=== PATIENT | female | born 1955 | race Caucasian/White ===

== ENCOUNTER 2017-01-23 14:40 | Outpatient (CLI) | payer OTHER | END 2017-01-23 14:41 | disposition home or self-care (01) | DX: M79.7 Fibromyalgia (principal); E11.9 Type 2 diabetes mellitus without complications ==

== ENCOUNTER 2017-04-19 14:07 | Outpatient (CLI) | payer OTHER ==
[2017-04-19 18:47] LABS: CHOL/HDL RATIO 3.4 (<4.4); CHOLESTEROL 139 mg/dL; HDL CHOLESTEROL 41 mg/dL; LDL/HDL RATIO 1.3 (<4.4); TRIGLYCERIDES 224 mg/dL; VLDL CHOLESTEROL 45 mg/dL
== END 2017-04-19 14:08 | disposition home or self-care (01) ==
LOC: LAB.F 14:07
PROVIDERS: ATTEND Internal Medicine
DX: E78.00 Pure hypercholesterolemia, unspecified (principal)
CPT/HCPCS: 36415; 80061

== ENCOUNTER 2017-06-19 14:08 | Outpatient (CLI) | payer OTHER ==
[2017-06-19 20:14] LABS: CALCIUM 9.6 mg/dL (8.5-10.3); CREATININE 0.9 mg/dL (0.4-1.0); POTASSIUM 4.1 mmol/L (3.5-5.0)
[2017-06-19 21:15] LABS: HEMOGLOBIN A1C 0.57 g/dL
== END 2017-06-19 14:09 | disposition home or self-care (01) ==
LOC: LAB.F 14:08
PROVIDERS: ATTEND Internal Medicine
DX: E11.9 Type 2 diabetes mellitus without complications (principal)
CPT/HCPCS: 36415; 80048; 83036

== ENCOUNTER 2018-04-02 08:41 | Outpatient (CLI) | payer OTHER ==
[2018-04-02 11:19] LABS: HB2 TOTAL 16.1 g/dL; HEMOGLOBIN A1C 0.65 g/dL; HEMOGLOBIN A1C % 5.8 % (4.6-6.2)
[2018-04-02 11:22] LABS: ALBUMIN 4.3 g/dL (3.2-5.5); ALBUMIN/GLOBULIN RATIO 1.3 (1.0-2.2); ALKALINE PHOSPHATASE 64 IU/L (42-121); ALT ALANINE AMINOTRANSFERASE 35 IU/L (10-60); AST ASPARTATE AMINOTRANSFERASE 31 IU/L (10-42); BUN - BLOOD UREA NITROGEN 21 mg/dL (6-20); CALCIUM 9.3 mg/dL (8.5-10.3); CARBON DIOXIDE - CO2 21 mmol/L (21-32); CHLORIDE 108 mmol/L (101-111); CHOL/HDL RATIO 3.6 (<4.4); CHOLESTEROL 118 mg/dL; CREATININE 0.9 mg/dL (0.4-1.0); GFR - MDRD 63 (>89); GLUCOSE 151 mg/dL (70-100); HDL CHOLESTEROL 33 mg/dL; LDL CHOLESTEROL,CALCULATED 55 mg/dL; LDL/HDL RATIO 1.7 (<4.4); SODIUM 140 mmol/L (135-145); TOTAL PROTEIN 7.5 g/dL (6.7-8.2); VLDL CHOLESTEROL 30 mg/dL
== END 2018-04-02 08:42 | disposition home or self-care (01) ==
LOC: LAB.F 08:41
PROVIDERS: ATTEND Internal Medicine
DX: E11.9 Type 2 diabetes mellitus without complications (principal)
CPT/HCPCS: 36415; 80053; 80061; 82043; 83036; 83721; 84443

== ENCOUNTER 2018-08-30 05:41 | Day surgery (SDC) | payer MEDICARE, OTHER ==
[2018-08-30] MEDS ORDERED: PROPARACAINE 0.5% OPHTH DROPS 15 ML ONE (06:28)
[2018-08-30] MEDS ORDERED: KETOROLAC 0.45% OPHTH DROPS ONE (06:28)
[2018-08-30] MEDS ORDERED: PHENYLEPHRINE 2.5% OPHTH 2 ML DROPS ONE (06:28)
[2018-08-30] MEDS ORDERED: CYCLOPENTOLATE 1% OPHTH DROPS 2 ML ONE (06:28)
[2018-08-30] MEDS ORDERED: PHENYLEPHRINE 2.5% OPHTH 2 ML DROPS RIGHTEYE ONE (06:44)
[2018-08-30] MEDS ORDERED: PROPARACAINE 0.5% OPHTH DROPS 15 ML RIGHTEYE ONE ×2 (06:44→07:45)
[2018-08-30] MEDS ORDERED: CYCLOPENTOLATE 1% OPHTH DROPS 2 ML RIGHTEYE ONE (06:44)
[2018-08-30] MEDS ORDERED: KETOROLAC 0.45% OPHTH DROPS RIGHTEYE ONE (06:44)
[2018-08-30] MEDS ORDERED: LACTATED RINGERS 500 ML IV ONE ×2 (06:58→08:11)
[2018-08-30] MEDS ORDERED: MIDAZOLAM 2 MG/2 ML VIAL IVP ONE (07:00)
[2018-08-30] MEDS ORDERED: TRIAMCIN/MOXIFLOX OPHTHALMIC 0.6 ML VIAL IO ONE (07:07)
[2018-08-30] MEDS ORDERED: TIMOLOL 0.5% OPHTH DROPS ONE (07:07)
[2018-08-30] MEDS ORDERED: BRIMONIDINE 0.2% OPHTH DROPS 5 ML ONE (07:07)
[2018-08-30] MEDS ORDERED: EPINEPHrine 1 MG/ML AMP ONE (07:07)
[2018-08-30] MEDS ORDERED: VANCOMYCIN OPHTHALMI 8MG/0.8ML 8 MG/0.8 ML SYRINGE IO ONE (07:08)
[2018-08-30] MEDS ORDERED: BSS/LIDOCAINE/EPINEPHRINE 1 ML SYRINGE ONE (07:08)
--- NOTE | 2018-08-30 07:14 | ANESTHESIA ---
Pre-Anesthesia VS, & Labs - Diagnosis R senile combined cataract - Procedure R cataract extraction with IOL Vital Signs: Temp Pulse Resp BP Pulse Ox 36.4 C L 82 18 161/84 H 98 08/30/18 06:33 08/30/18 06:33 08/30/18 06:33 08/30/18 06:33 08/30/18 06:33 Height 5 ft Weight (kg) 116.8 kg - NPO >8 hours - Is Patient ?: No - Lab Results Current Lab Results: Laboratory Tests 08/30/18 06:53: POC Whole Bld Glucose 159 H Lab results reviewed: No Home Medications and Allergies Home Medications: Ambulatory Orders Acetaminophen [Tylenol] 650 mg PO TID 08/30/18 Aspirin 325 mg PO DAILY 08/30/18 Atorvastatin Calcium 40 mg PO DAILY 08/30/18 Duloxetine HCl [Cymbalta] 60 mg PO DAILY 08/30/18 Lisinopril [Zestril] 5 mg PO ONCE 08/30/18 Metformin HCl 1,000 mg PO BID 08/30/18 Topiramate 100 mg PO DAILY 08/30/18 Acetaminophen [Tylenol] 650 mg PO TID 08/30/18 Aspirin 325 mg PO DAILY 08/30/18 Atorvastatin Calcium 40 mg PO DAILY 08/30/18 Duloxetine HCl [Cymbalta] 60 mg PO DAILY 08/30/18 Lisinopril [Zestril] 5 mg PO ONCE 08/30/18 Metformin HCl 1,000 mg PO BID 08/30/18 Topiramate 100 mg PO DAILY 08/30/18 Allergies/Adverse Reactions: Allergies Allergy/AdvReac Type Severity Reaction Status Date / Time gabapentin AdvReac Unknown Verified 08/30/18 06:34 tramadol AdvReac Respiratory Verified 08/30/18 06:34 Anes History & Medical History - Anesthetic History Anesthesia Complications: reports: No previous complications Family history of Anesthesia Complications: Denies Family history of Malignant Hyperthermia: Denies - Medical History Cardiovascular: reports: Hypertension, High cholesterol Pulmonary: reports: None Gastrointestinal: reports: GERD, Other Urinary: reports: Other Musculoskeletal: reports: Osteoarthritis, Fibromyalgia Endocrine/Autoimmune: reports: Type 2 diabetes Skin: reports: None - Surgical History General: Gastric surgery Exam General: Alert Dental: WNL, Poor dentition Neck Mobility: Normal Mallampati classification: II Respiratory: Lungs clear Cardiovascular: Regular rate Plan Anesthesia Type: MAC Consent for Procedure(s) Verified and Reviewed: Yes Code Status: Attempt Resuscitation ASA classification: 2-Mild systemic disease Is this case an emergency?: No
[2018-08-30] MEDS ORDERED: TIMOLOL 0.5% OPHTH DROPS OPTH ONE (07:45)
[2018-08-30] MEDS ORDERED: BRIMONIDINE 0.2% OPHTH DROPS 5 ML OPTH ONE (07:45)
[2018-08-30] MEDS ORDERED: EPINEPHrine 1 MG/ML AMP IR ONE (07:45)
[2018-08-30] MEDS ORDERED: CHONDR SULF/HYALURONATE SYRINGE IO ONE (07:45)
[2018-08-30] MEDS ORDERED: BSS/LIDOCAINE/EPINEPHRINE 1 ML SYRINGE IO ONE (07:45)
[2018-08-30 07:57] VITALS: BP 95/73
--- NOTE | 2018-08-30 12:24 | OPERATIVE REPORT ---
DATE OF SERVICE: 08/30/2018 Physician: Beltran Moreno MD PREOPERATIVE DIAGNOSIS: Visually significant cataract, right eye. This was her first cataract surgery. POSTOPERATIVE DIAGNOSIS: Visually significant cataract, right eye. This was her first cataract surgery. NAME OF PROCEDURE: Phacoemulsification with posterior chamber intraocular lens implant, right eye. SURGEON: Beltran Moreno MD ANESTHESIA: Monitored anesthesia care. COMPLICATIONS: None. OPERATIVE INDICATIONS: This is a 63-year-old woman with progressive vision loss in the right eye due to 1-2+ nuclear sclerotic and 3+ cortical cataract. Best corrected visual acuity was 20/30 with glare to 20/200 in the right eye. Indications for surgery were overall decrease in vision, difficulty seeing words on the computer screen, difficulty reading, difficulty seeing words, closed caption and game scores on TV, difficulty seeing street signs, difficulty driving in low light or at night, difficulty driving at night because of headlights from other vehicles, and difficulty with glare or bright lights in any situation. She was consented at length concerning risks and benefits of cataract surgery, after which she expressed a desire to proceed with surgery. OPERATIVE PROCEDURE: The patient was taken to OR #3 and placed under monitored anesthesia care. A surgical timeout was conducted confirming correct patient, correct procedure, and correct surgical site. She was given topical anesthesia, and prepped and draped in the usual sterile fashion. The eye was entered at the 12 and 9 o'clock positions. Intracameral Shugarcaine was injected into the anterior chamber, followed by Viscoat. A continuous-tear curvilinear capsulorrhexis was performed. The nucleus was hydrodissected and phacoemulsified. The cortex was evacuated using automated infusion and aspiration (I&A). Provisc was injected into the capsular bag and a 21.5 diopter intraocular lens was inserted into the bag. Approximately 0.8 mL of a mixture of triamcinolone, moxifloxacin, and vancomycin was injected subconjunctivally in the superior quadrant for infection and inflammation prophylaxis. I&A was used to evacuate the viscoelastic materials. The eye was inflated to physiologic pressure using balanced salt solution and found to be watertight. The patient was taken from the operating room in good condition and given postoperative instructions. TD: 08/30/2018 08:04 [facility]
== END 2018-08-30 05:42 | disposition home or self-care (01) ==
LOC: SDS 05:41
PROVIDERS: ATTEND Ophthalmology
PROC: 08RJ3JZ Replacement of Right Lens with Synthetic Substitute, Percutaneous Approach (ICD-10-PCS; principal; 2018-08-30 07:30)
DX: H25.811 Combined forms of age-related cataract, right eye (principal); E11.9 Type 2 diabetes mellitus without complications; I10 Essential (primary) hypertension; K21.9 Gastro-esophageal reflux disease without esophagitis; Z79.82 Long term (current) use of aspirin; Z79.899 Other long term (current) drug therapy; Z79.84 Long term (current) use of oral hypoglycemic drugs; Z98.84 Bariatric surgery status
CPT/HCPCS: 66984; A9270; J3490; V2632

== ENCOUNTER 2020-04-30 08:35 | Outpatient (CLI) | payer MEDICARE ==
[2020-04-30 15:09] LABS: BASOPHILS % (AUTO) 0.4 %; EOSINOPHILS # (AUTO) 0.1 10^3/uL (0.0-0.7); EOSINOPHILS % (AUTO) 1.5 %; HGB - HEMOGLOBIN 14.2 g/dL (12.0-16.0); LYMPHOCYTES # (AUTO) 1.9 10^3/uL (1.5-3.5); LYMPHOCYTES % (AUTO) 36.5 %; MEAN CORPUSCULAR HEMOGLOBIN 29.9 pg (27.0-31.0); MEAN CORPUSCULAR HGB CONC 32.6 g/dL (32.0-36.0); MEAN CORPUSCULAR VOLUME 91.8 fL (81.0-99.0); MONOCYTES # (AUTO) 0.6 10^3/uL (0.0-1.0); MONOCYTES % (AUTO) 10.9 %; NEUTROPHILS # (AUTO) 2.6 10^3/uL (1.5-6.6); NEUTROPHILS % (AUTO) 50.3 %; PLT - PLATELET COUNT 214 10^3/uL (130-450); RED BLOOD COUNT 4.75 10^6/uL (4.20-5.40); RED CELL DISTRIBUTION WIDTH 13.2 % (12.0-15.0); WHITE BLOOD COUNT 5.2 x10^3/uL (4.8-10.8)
[2020-04-30 15:56] LABS: ALBUMIN 4.1 g/dL (3.2-5.5); ALBUMIN/GLOBULIN RATIO 1.3 (1.0-2.2); ALKALINE PHOSPHATASE 61 IU/L (42-121); ALT ALANINE AMINOTRANSFERASE 20 IU/L (10-60); AST ASPARTATE AMINOTRANSFERASE 21 IU/L (10-42); BILIRUBIN,TOTAL 0.6 mg/dL (0.2-1.0); BUN - BLOOD UREA NITROGEN 21 mg/dL (6-20); CALCIUM 8.9 mg/dL (8.5-10.3); CARBON DIOXIDE - CO2 20 mmol/L (21-32); CHLORIDE 112 mmol/L (101-111); CHOL/HDL RATIO 2.6 (<4.4); CHOLESTEROL 130 mg/dL; CREATININE 0.8 mg/dL (0.4-1.0); GLUCOSE 122 mg/dL (70-100); HB2 TOTAL 15.7 g/dL; HDL CHOLESTEROL 50 mg/dL; HEMOGLOBIN A1C 0.53 g/dL; HEMOGLOBIN A1C % 5.2 % (4.6-6.2); LDL CHOLESTEROL,CALCULATED 56 mg/dL; LDL/HDL RATIO 1.1 (<4.4); SODIUM 140 mmol/L (135-145); TOTAL PROTEIN 7.2 g/dL (6.7-8.2); VLDL CHOLESTEROL 24 mg/dL
== END 2020-04-30 08:36 | disposition home or self-care (01) ==
LOC: LAB.S 08:35
PROVIDERS: ATTEND Registered Nurse
DX: E11.9 Type 2 diabetes mellitus without complications (principal); E78.00 Pure hypercholesterolemia, unspecified; E66.01 Morbid (severe) obesity due to excess calories
CPT/HCPCS: 36415; 80053; 80061; 83036; 83721; 84443; 85025

== ENCOUNTER 2021-09-23 11:59 | Outpatient (CLI) | payer MEDICARE ==
[2021-09-23 15:40] LABS: BASOPHILS % (AUTO) 0.4 %; EOSINOPHILS % (AUTO) 0.5 %; HCT - HEMATOCRIT 42.8 % (37.0-47.0); HGB - HEMOGLOBIN 14.2 g/dL (12.0-16.0); LYMPHOCYTES # (AUTO) 3.1 10^3/uL (1.5-3.5); LYMPHOCYTES % (AUTO) 54.3 %; MEAN CORPUSCULAR HEMOGLOBIN 29.7 pg (27.0-31.0); MEAN CORPUSCULAR HGB CONC 33.2 g/dL (32.0-36.0); MEAN CORPUSCULAR VOLUME 89.5 fL (81.0-99.0); MEAN PLATELET VOLUME 9.7 fL (7.9-10.8); MONOCYTES # (AUTO) 0.8 10^3/uL (0.0-1.0); MONOCYTES % (AUTO) 13.3 %; NEUTROPHILS # (AUTO) 1.8 10^3/uL (1.5-6.6); NEUTROPHILS % (AUTO) 31.3 %; PLT - PLATELET COUNT 188 10^3/uL (130-450); RED BLOOD COUNT 4.78 10^6/uL (4.20-5.40); RED CELL DISTRIBUTION WIDTH 14.4 % (12.0-15.0); WHITE BLOOD COUNT 5.6 x10^3/uL (4.8-10.8)
[2021-09-23 15:57] LABS: ALBUMIN 4.5 g/dL (3.2-5.5); ALBUMIN/GLOBULIN RATIO 1.3 (1.0-2.2); ALKALINE PHOSPHATASE 65 IU/L (42-121); ALT ALANINE AMINOTRANSFERASE 22 IU/L (10-60); AST ASPARTATE AMINOTRANSFERASE 23 IU/L (10-42); BILIRUBIN,TOTAL 0.6 mg/dL (0.2-1.0); BUN - BLOOD UREA NITROGEN 16 mg/dL (6-20); CALCIUM 10.2 mg/dL (8.5-10.3); CARBON DIOXIDE - CO2 22 mmol/L (21-32); CHLORIDE 110 mmol/L (101-111); CHOLESTEROL 147 mg/dL; CREATININE 0.9 mg/dL (0.4-1.0); GFR - MDRD 63 (>89); GLUCOSE 120 mg/dL (70-100); HDL CHOLESTEROL 37 mg/dL; LDL CHOLESTEROL,CALCULATED 56 mg/dL; LDL/HDL RATIO 1.5 (<4.4); POTASSIUM 4.4 mmol/L (3.5-5.0); SODIUM 143 mmol/L (135-145); TRIGLYCERIDES 268 mg/dL; VLDL CHOLESTEROL 54 mg/dL
[2021-09-23 16:07] LABS: THYROID STIMULATING HORMONE 2.01 uIU/mL (0.34-5.60)
[2021-09-23 16:31] LABS: CREATININE,URINE 165.9 mg/dL; MICROALBUM/CREATININE RATIO,UR 7.8 ug/mg (<30.0); MICROALBUMIN,URINE 1.3 mg/dL (0-300.0)
[2021-09-23 20:27] LABS: ESTIMATED AVERAGE GLUCOSE 120 mg/dL (70-100); HEMOGLOBIN A1c% 5.8 % (4.27-6.07)
== END 2021-09-23 12:00 | disposition home or self-care (01) ==
LOC: LAB.S 11:59
PROVIDERS: ATTEND Internal Medicine
DX: E11.9 Type 2 diabetes mellitus without complications (principal)
CPT/HCPCS: 36415; 80053; 80061; 82043; 82570; 83036; 83721; 84443; 85025